=== PATIENT | female | born 1965 | race African-American/Black ===

== ENCOUNTER 2022-06-30 09:55 | Emergency (ER) | payer OTHER ==
[2022-06-30 10:04] VITALS: BP 143/81; PULSE 62; RESP 18; TEMP 98; BMI 28.3
== END 2022-06-30 10:40 | disposition home or self-care (01) ==
LOC: FER 09:55
DX: S91.311A Laceration without foreign body, right foot, initial encounter (principal); Y99.8 Other external cause status
CPT/HCPCS: 99283-25

== ENCOUNTER 2024-03-06 04:43 | Day surgery (SDC) | payer OTHER ==
[2024-03-03 12:34] VITALS: BMI 28.6
[2024-03-06 11:08] VITALS: TEMP 98
[2024-03-06 11:24] VITALS: PULSE 82; RESP 18
[2024-03-06 13:12] VITALS: BP 108/82
== END 2024-03-06 11:45 | disposition home or self-care (01) ==
LOC: JASU-ENDO 04:43
PROVIDERS: ATTEND Internal Medicine Gastroenterology
PROC: 0DJD8ZZ Inspection of Lower Intestinal Tract, Via Natural or Artificial Opening Endoscopic (ICD-10-PCS; principal; 2024-03-06 10:30)
DX: Z12.11 Encounter for screening for malignant neoplasm of colon (principal); I10 Essential (primary) hypertension; E11.9 Type 2 diabetes mellitus without complications; Z79.84 Long term (current) use of oral hypoglycemic drugs; Z79.85 Long-term (current) use of injectable non-insulin antidiabetic drugs
CPT/HCPCS: 82962